=== PATIENT | male | born 1955 | race Caucasian/White ===

== ENCOUNTER → 2020-02-21 | Outpatient (CLI) | payer OTHER ==
[~2020-02-21] MED LIST: AMIO200T42 PO; AMLO2.5T5 PO; ASPI-496 PO; ATOR20TA37 PO; CYAN1TAB29 PO; GABA300C PO; HYDR-3237 PO; HYDR25TA6 PO; MELO7.5T31 PO; METO50TA82 PO; OMEG1CAP23 PO; OMEP40CA42 PO; POTA20TA89 PO
[2020-02-21 16:04] LABS: MICROSCOPIC NOT IND
[2020-02-21 16:06] LABS: BASOPHILS # (AUTO) 0.03 x10^3/uL (0-0.1); BASOPHILS % (AUTO) 0 % (0-1); EOSINOPHILS # (AUTO) 0.04 x10^3/uL (0-0.4); EOSINOPHILS % (AUTO) 1 % (1-7); LYMPHOCYTES # (AUTO) 1.59 x10^3/uL (1-3.4); LYMPHOCYTES % (AUTO) 22 % (22-44); MD NO; MEAN CORPUSCULAR HEMOGLOBIN 35.1 pg (27.5-34.5); MEAN CORPUSCULAR HGB CONC 33.9 g/dL (33.2-36.2); MEAN CORPUSCULAR VOLUME 103.6 fL (81-97); MEAN PLATELET VOLUME 7.9 fL (7.4-10.4); MONOCYTES # (AUTO) 0.56 x10^3/uL (0.2-0.8); MONOCYTES % (AUTO) 8 % (2-9); NEUTROPHILS # (AUTO) 4.98 x10^3/uL (1.8-6.8); NEUTROPHILS % (AUTO) 69 % (42-75); PLATELET COUNT 178 x10^3/uL (130-400); RED BLOOD COUNT 4.42 x10^6/uL (4.38-5.82); RED CELL DISTRIBUTION WIDTH 13.4 % (9.4-14.8)
[2020-02-21 16:14] LABS: ALBUMIN 3.7 g/dL (3.4-5.0); ANION GAP 9 mmol/L (5-15); CHLORIDE 110 mmol/L (98-107)
[2020-02-21 16:17] LABS: ALANINE AMINOTRANSFERASE 52 U/L (12-78); ALKALINE PHOSPHATASE 61 U/L (45-117); BILIRUBIN,TOTAL 0.8 mg/dL (0.2-1.0); CREATININE 0.88 mg/dL (0.7-1.3)
[2020-02-21 16:21] LABS: INTERNATIONAL NORMALIZED RATIO 1.03 (0.93-1.1); PROTHROMBIN TIME 10.9 Seconds (9.6-11.5)
== END | disposition home or self-care (01) ==
LOC: STAR 14:51
PROVIDERS: ATTEND Neurological Surgery
DX: Z01.811 Encounter for preprocedural respiratory examination (principal); Z01.810 Encounter for preprocedural cardiovascular examination; Z01.812 Encounter for preprocedural laboratory examination; M48.061 Spinal stenosis, lumbar region without neurogenic claudication; M51.37 Other intervertebral disc degeneration, lumbosacral region; M54.16 Radiculopathy, lumbar region; R79.1 Abnormal coagulation profile; R82.90 Unspecified abnormal findings in urine; R94.31 Abnormal electrocardiogram [ECG] [EKG]
CPT/HCPCS: 36415; 71046; 72110; 80053; 81003; 85025; 85610; 85730; 93005

== ENCOUNTER 2020-02-28 09:28 | Inpatient (IN) | payer OTHER ==
[2020-02-21 15:48] VITALS: BP 152/94
[~2020-02-28] VITALS: Ht 172.7 cm; Wt 94.0 kg
[~2020-02-28 09:28] MED LIST changes: +BACITRACIN 50,000 UNIT ONE
[2020-02-28] MEDS ORDERED: LACTATED RINGERS 1,000 ML IV SCH (10:15)
[2020-02-28] MEDS ORDERED: ACETAMINOPHEN 500 MG TABLET PO ONE (10:30)
[2020-02-28] MEDS ORDERED: CHLORHEXIDINE 15 ML UDC MM ONE (10:30)
[2020-02-28] MEDS ORDERED: GABAPENTIN 300 MG CAPSULE PO ONE (10:30)
[2020-02-28] MEDS ORDERED: MIDAZOLAM 1 MG/ML, 2ML ONE (13:09)
[2020-02-28] MEDS ORDERED: FENTANYL PF 250 MCG/5ML ONE (13:10)
[2020-02-28] MEDS ORDERED: LIDOCAINE 4%, 4 ML SYR/CANN TP ONE (13:12)
[2020-02-28] MEDS ORDERED: HEPARIN 1,000 UNITS/ML, 30ML ONE (13:21)
[2020-02-28] MEDS ORDERED: hydrALAzine 20 MG/ML, 1ML IV PRN (13:30)
[2020-02-28] MEDS ORDERED: OXYcodone 5 MG/5 ML ORAL.SOL UDC PO PRN (13:30)
[2020-02-28] MEDS ORDERED: MEPERIDINE/PF 25MG/0.5ML IVPush PRN (13:30)
[2020-02-28] MEDS ORDERED: PROMETHAZINE 25 MG/ML, 1ML IVPush PRN (13:30)
[2020-02-28] MEDS ORDERED: LABETALOL 5MG/ML, 20ML IV PRN ×2 (13:30→18:30)
[2020-02-28] MEDS ORDERED: DIPHENHYDRAMINE 50 MG/ML, 1ML IVPush PRN (13:30)
[2020-02-28] MEDS ORDERED: HEPARIN 1,000 UNITS/ML, 30ML IVPB ONE (14:39)
[2020-02-28] MEDS ORDERED: SUGAMMADEX 200 MG/2 ML IVPush ONE (15:08)
[2020-02-28] MEDS ORDERED: CEFAZOLIN 1,000 MG ONE (15:09)
[2020-02-28] MEDS ORDERED: ONDANSETRON 2MG/ML, 2ML ONE (15:09)
[2020-02-28] MEDS ORDERED: DEXAMETHASONE 4 MG/ML, 1ML ONE (15:09)
[2020-02-28] MEDS ORDERED: GLYCOPYRROLATE 0.2MG/1ML, 5ML ONE (15:09)
[2020-02-28] MEDS ORDERED: PROPOFOL 10 MG/ML, 20ML ONE (15:09)
[2020-02-28] MEDS ORDERED: NEOSTIGMINE 1 MG/ML, 10ML ONE (15:09)
[2020-02-28] MEDS ORDERED: SUCCINYLCHOLINE 20 MG/ML, 10ML ONE (15:09)
[2020-02-28] MEDS ORDERED: ROCURONIUM 10MG/ML,5ML ONE (15:09)
[2020-02-28] MEDS ORDERED: FENTANYL PF 100 MCG/2ML ONE (15:32)
[2020-02-28] MEDS ORDERED: HYDROmorphone 1 MG/ML, 1ML INJ ONE ×3 (15:33→18:13)
[2020-02-28] MEDS ORDERED: OXYcodone 5 MG/5 ML ORAL.SOL UDC ONE (15:33)
[2020-02-28] MEDS: FENTANYL PF 100 MCG/2ML IV PRN ×2 (15:35→15:40)
[2020-02-28] MEDS: HYDROmorphone 1 MG/ML, 1ML INJ IVPush PRN ×4 (15:50→16:25)
[2020-02-28 17:15] VITALS: BP 143/85
[2020-02-28] MEDS: HYDROmorphone 2 MG/ML, 1ML IVPush PRN (18:15)
[2020-02-28] MEDS ORDERED: PROMETHAZINE 25 MG/ML, 1ML IM PRN (18:30)
[2020-02-28] MEDS ORDERED: ONDANSETRON 2MG/ML, 2ML IV PRN (18:30)
[2020-02-28] MEDS ORDERED: DIPHENHYDRAMINE 25 MG CAPSULE PO PRN (18:30)
[2020-02-28] MEDS ORDERED: MAGNESIUM HYDROXIDE 8%, 30ML UDC PO PRN (18:30)
[2020-02-28] MEDS ORDERED: BISACODYL 10 MG SUPP PR PRN (18:30)
[2020-02-28] MEDS ORDERED: POTASSIUM CHLORIDE 20 MEQ TAB.ER.PRT PO PRN (19:00)
[2020-02-28] MEDS: D5%-0.9% NACL+KCL 20MEQ 1,000 ML IV SCH (20:03)
[2020-02-28] MEDS: ATORVASTATIN 20 MG TABLET PO SCH (20:32)
[2020-02-28] MEDS: HYDROcodone/APAP 10/325 MG TABLET PO PRN ×2 (20:32→22:20)
[2020-02-28] MEDS ORDERED: ZOLPIDEM 5MG TABLET PO PRN (21:00)
[2020-02-28] MEDS: CEFAZOLIN PMX 1GM/50ML 50 ML IVPB SCH (22:22)
[2020-02-29 00:28] VITALS: BP 134/85
[2020-02-29] MEDS: HYDROmorphone 2 MG/ML, 1ML IVPush PRN (00:38)
[2020-02-29] MEDS: HYDROcodone/APAP 10/325 MG TABLET PO PRN (02:18)
[2020-02-29 04:23] VITALS: BP 115/68
[2020-02-29] MEDS ORDERED: METOPROLOL TARTRATE 50 MG TAB ONE (05:48)
[2020-02-29] MEDS: METOPROLOL TARTRATE 50 MG TAB PO SCH (05:50)
[2020-02-29] MEDS: CEFAZOLIN PMX 1GM/50ML 50 ML IVPB SCH ×2 (05:50→16:02)
[2020-02-29] MEDS: OMEPRAZOLE 20 MG CAPSULE.DR PO SCH (05:50)
[2020-02-29] MEDS ORDERED: BUPIVACAINE/EPI 0.5% 1:200K ONE (06:20)
[2020-02-29] MEDS ORDERED: BACITRACIN 50,000 UNIT ONE (06:20)
[2020-02-29 06:37] LABS: BASOPHILS # (AUTO) 0.04 x10^3/uL (0-0.1); BASOPHILS % (AUTO) 0 % (0-1); EOSINOPHILS # (AUTO) 0.01 x10^3/uL (0-0.4); EOSINOPHILS % (AUTO) 0 % (1-7); LYMPHOCYTES # (AUTO) 0.79 x10^3/uL (1-3.4); LYMPHOCYTES % (AUTO) 8 % (22-44); MD NO; MEAN CORPUSCULAR HEMOGLOBIN 34.4 pg (27.5-34.5); MEAN PLATELET VOLUME 8.1 fL (7.4-10.4); MONOCYTES # (AUTO) 0.61 x10^3/uL (0.2-0.8); MONOCYTES % (AUTO) 6 % (2-9); NEUTROPHILS # (AUTO) 8.64 x10^3/uL (1.8-6.8); NEUTROPHILS % (AUTO) 86 % (42-75); PLATELET COUNT 184 x10^3/uL (130-400); RED BLOOD COUNT 4.22 x10^6/uL (4.38-5.82); RED CELL DISTRIBUTION WIDTH 12.6 % (9.4-14.8)
[2020-02-29] MEDS ORDERED: FENTANYL PF 100 MCG/2ML ONE ×3 (06:38→11:09)
[2020-02-29] MEDS ORDERED: DEXAMETHASONE 4 MG/ML, 1ML ONE (06:38)
[2020-02-29] MEDS ORDERED: PROPOFOL 10 MG/ML, 20ML ONE (06:38)
[2020-02-29] MEDS ORDERED: MIDAZOLAM 1 MG/ML, 2ML ONE (06:38)
[2020-02-29] MEDS ORDERED: ONDANSETRON 2MG/ML, 2ML ONE (06:38)
[2020-02-29] MEDS ORDERED: CEFAZOLIN 1,000 MG ONE (06:38)
[2020-02-29 06:44] LABS: ANION GAP 7 mmol/L (5-15); CALCIUM 8.8 mg/dL (8.5-10.1); CHLORIDE 107 mmol/L (98-107); CREATININE 0.72 mg/dL (0.7-1.3)
[2020-02-29] MEDS: D5%-0.9% NACL+KCL 20MEQ 1,000 ML IV SCH ×3 (06:44→19:56)
[2020-02-29] MEDS ORDERED: SUCCINYLCHOLINE 20 MG/ML, 10ML ONE (07:18)
[2020-02-29] MEDS ORDERED: HYDROcodone/APAP 7.5-325MG/15ML UDC PO PRN (07:30)
[2020-02-29] MEDS ORDERED: OXYcodone 5 MG/5 ML ORAL.SOL UDC PO PRN (07:30)
[2020-02-29] MEDS ORDERED: MEPERIDINE/PF 25MG/0.5ML IVPush PRN (07:30)
[2020-02-29] MEDS ORDERED: PROMETHAZINE 25 MG/ML, 1ML IVPush PRN (07:30)
[2020-02-29] MEDS ORDERED: LORazepam 2 MG/ML, 1ML IVPush PRN (07:30)
[2020-02-29] MEDS ORDERED: HYDROmorphone 1 MG/ML, 1ML INJ IVPush PRN (07:30)
[2020-02-29] MEDS ORDERED: PROPOFOL 50 ML ONE (08:28)
[2020-02-29] MEDS ORDERED: SENNA/DOCUSATE TABLET PO SCH (09:00)
[2020-02-29] MEDS ORDERED: BISACODYL 10 MG SUPP PR PRN (10:30)
[2020-02-29] MEDS ORDERED: PHARMACY MAY ADJ FOR RENAL FX MC PRN (10:30)
[2020-02-29] MEDS ORDERED: MAGNESIUM HYDROXIDE 8%, 30ML UDC PO PRN (10:30)
[2020-02-29] MEDS ORDERED: ONDANSETRON 2MG/ML, 2ML IVPush PRN (10:30)
[2020-02-29] MEDS ORDERED: HYDROCHLOROTHIAZIDE 25 MG TABLET PO SCH (10:30)
[2020-02-29] MEDS ORDERED: DIPHENHYDRAMINE 50 MG/ML, 1ML IVPush PRN (10:30)
[2020-02-29] MEDS ORDERED: SENNA/DOCUSATE TABLET PO PRN (10:30)
[2020-02-29] MEDS ORDERED: POTASSIUM CHLORIDE 20 MEQ TAB.ER.PRT PO PRN (10:30)
[2020-02-29] MEDS ORDERED: PROMETHAZINE 25 MG/ML, 1ML IM PRN (10:30)
[2020-02-29] MEDS: LABETALOL 5MG/ML 40ML VIAL IVPush SCH ×2 (10:30→18:30)
[2020-02-29] MEDS ORDERED: METHOCARBAMOL 1,000 MG in DEXTROSE 5% 100 ML IV ONE (10:30)
[2020-02-29] MEDS ORDERED: GLYCOPYRROLATE 0.4 MG/2 ML, 2ML ONE (11:02)
[2020-02-29] MEDS ORDERED: OXYcodone 5 MG/5 ML ORAL.SOL UDC ONE (11:09)
[2020-02-29] MEDS: FENTANYL PF 100 MCG/2ML IV PRN ×4 (11:10→11:25)
[2020-02-29 12:01] VITALS: BP 136/81
[2020-02-29] MEDS: CYCLOBENZAPRINE 10 MG TABLET PO PRN ×2 (12:38→20:22)
[2020-02-29] MEDS: AMLODIPINE 2.5 MG TABLET PO SCH (12:39)
[2020-02-29] MEDS: AMIODARONE 200 MG TABLET PO SCH (12:39)
[2020-02-29] MEDS: GABAPENTIN 300 MG CAPSULE PO SCH (12:39)
[2020-02-29] MEDS: HYDROmorphone 1 MG/ML, 1ML INJ IVPush PRN (12:49)
[2020-02-29 13:28] VITALS: BP 109/64
[2020-02-29] MEDS: DEXAMETHASONE 4 MG/ML, 1ML IVPush SCH ×2 (14:47→19:57)
[2020-02-29] MEDS: OXYcodone/APAP 5/325MG TABLET PO PRN (16:16)
[2020-02-29] MEDS: SODIUM CHLORIDE FLUSH 10ML SYR IVF SCH (19:57)
[2020-02-29] MEDS: ATORVASTATIN 20 MG TABLET PO SCH (19:57)
[2020-02-29] MEDS: HYDROcodone/APAP 5/325 TABLET PO PRN (20:22)
[2020-02-29 20:36] VITALS: BP 124/79
[2020-02-29] MEDS ORDERED: ATORVASTATIN 20 MG TABLET PO SCH (21:00)
[2020-03-01] MEDS: CEFAZOLIN PMX 1GM/50ML 50 ML IVPB SCH ×2 (00:12→18:27)
[2020-03-01] MEDS: HYDROcodone/APAP 5/325 TABLET PO PRN ×2 (00:12→04:10)
[2020-03-01 00:43] VITALS: BP 106/64
[2020-03-01] MEDS: LABETALOL 5MG/ML 40ML VIAL IVPush SCH (02:30)
[2020-03-01] MEDS: DEXAMETHASONE 4 MG/ML, 1ML IVPush SCH (04:10)
[2020-03-01] MEDS: HYDROmorphone 1 MG/ML, 1ML INJ IVPush PRN ×2 (04:15→18:27)
[2020-03-01 04:49] VITALS: BP 113/67
[2020-03-01] MEDS: OMEPRAZOLE 20 MG CAPSULE.DR PO SCH (05:10)
[2020-03-01] MEDS: D5%-0.9% NACL+KCL 20MEQ 1,000 ML IV SCH ×2 (05:10→18:27)
[2020-03-01 05:43] LABS: ANION GAP 4 mmol/L (5-15); CALCIUM 8.5 mg/dL (8.5-10.1); CHLORIDE 108 mmol/L (98-107); CREATININE 1.03 mg/dL (0.7-1.3)
[2020-03-01 05:44] LABS: MEAN CORPUSCULAR HEMOGLOBIN 34.5 pg (27.5-34.5); MEAN CORPUSCULAR HGB CONC 33.2 g/dL (33.2-36.2); MEAN PLATELET VOLUME 8.7 fL (7.4-10.4); PLATELET COUNT 208 x10^3/uL (130-400); RED BLOOD COUNT 3.91 x10^6/uL (4.38-5.82); RED CELL DISTRIBUTION WIDTH 13.2 % (9.4-14.8)
[2020-03-01] MEDS ORDERED: BACITRACIN 50,000 UNIT ONE (06:01)
[2020-03-01] MEDS ORDERED: BUPIVACAINE/EPI 0.5% 1:200K ONE (06:01)
[2020-03-01] MEDS ORDERED: VANCOMYCIN 1,000 MG ONE (06:01)
[2020-03-01 06:40] LABS: BASOPHILS # (AUTO) 0.07 x10^3/uL (0-0.1); BASOPHILS % (AUTO) 1 % (0-1); EOSINOPHILS # (AUTO) 0.01 x10^3/uL (0-0.4); EOSINOPHILS % (AUTO) 0 % (1-7); LYMPHOCYTES # (AUTO) 0.73 x10^3/uL (1-3.4); LYMPHOCYTES % (AUTO) 6 % (22-44); MD SCAN; MONOCYTES # (AUTO) 0.35 x10^3/uL (0.2-0.8); MONOCYTES % (AUTO) 3 % (2-9); NEUTROPHILS % (AUTO) 91 % (42-75)
[2020-03-01 07:14] VITALS: BP 123/71
[2020-03-01] MEDS ORDERED: MIDAZOLAM 1 MG/ML, 2ML ONE (08:26)
[2020-03-01] MEDS ORDERED: PROPOFOL 100 ML ONE (08:26)
[2020-03-01] MEDS ORDERED: FENTANYL PF 250 MCG/5ML ONE (08:27)
[2020-03-01] MEDS: SODIUM CHLORIDE FLUSH 10ML SYR IVF SCH ×2 (09:00→21:00)
[2020-03-01] MEDS ORDERED: OMEPRAZOLE 20 MG CAPSULE.DR PO SCH (09:00)
[2020-03-01] MEDS ORDERED: AMLODIPINE 2.5 MG TABLET PO SCH (09:00)
[2020-03-01] MEDS ORDERED: GABAPENTIN 300 MG CAPSULE PO SCH (09:00)
[2020-03-01] MEDS ORDERED: AMIODARONE 200 MG TABLET PO SCH (09:00)
[2020-03-01] MEDS ORDERED: METOPROLOL TARTRATE 50 MG TAB PO SCH (09:00)
[2020-03-01] MEDS ORDERED: BUPIVACAINE LIPOSOME/PF 10ML INFIL ONE (10:00)
[2020-03-01] MEDS ORDERED: CEFAZOLIN 1,000 MG ONE ×2 (10:19→10:20)
[2020-03-01] MEDS ORDERED: ROCURONIUM 10MG/ML,5ML ONE (10:19)
[2020-03-01] MEDS ORDERED: DEXAMETHASONE 4 MG/ML, 1ML ONE ×2 (10:19)
[2020-03-01] MEDS ORDERED: PROPOFOL 10 MG/ML, 20ML ONE (11:52)
[2020-03-01] MEDS ORDERED: ONDANSETRON 2MG/ML, 2ML ONE (11:52)
[2020-03-01] MEDS ORDERED: SUCCINYLCHOLINE 20 MG/ML, 10ML ONE (11:52)
[2020-03-01] MEDS ORDERED: FENTANYL PF 100 MCG/2ML IV PRN (12:00)
[2020-03-01] MEDS ORDERED: OXYcodone 5 MG/5 ML ORAL.SOL UDC PO PRN (12:00)
[2020-03-01] MEDS ORDERED: LABETALOL 5MG/ML, 20ML IV PRN ×2 (12:00→15:30)
[2020-03-01] MEDS ORDERED: ONDANSETRON 2MG/ML, 2ML IVPush PRN (12:00)
[2020-03-01] MEDS ORDERED: PROMETHAZINE 25 MG/ML, 1ML IVPush PRN (12:00)
[2020-03-01] MEDS ORDERED: METHOCARBAMOL 1,000 MG in DEXTROSE 5% 100 ML IV PRN (12:00)
[2020-03-01] MEDS ORDERED: HYDROmorphone 1 MG/ML, 1ML INJ IVPush PRN (12:00)
[2020-03-01] MEDS ORDERED: DIAZEPAM 5 MG/ML, 2ML IVPush PRN (12:00)
[2020-03-01] MEDS ORDERED: MEPERIDINE/PF 25MG/0.5ML IVPush PRN (12:00)
[2020-03-01] MEDS ORDERED: hydrALAzine 20 MG/ML, 1ML IV PRN (12:00)
[2020-03-01] MEDS ORDERED: FENTANYL PF 100 MCG/2ML ONE ×2 (13:07→13:54)
[2020-03-01] MEDS: FENTANYL PF 100 MCG/2ML IV PRN ×4 (13:09→14:09)
[2020-03-01] MEDS ORDERED: MEPERIDINE/PF 25MG/ML,1ML ONE (13:16)
[2020-03-01] MEDS ORDERED: OXYcodone 5 MG/5 ML ORAL.SOL UDC ONE (13:54)
[2020-03-01] MEDS ORDERED: HYDROmorphone 1 MG/ML, 1ML INJ ONE (14:18)
[2020-03-01 15:04] VITALS: BP 157/80
[2020-03-01] MEDS: METOPROLOL TARTRATE 50 MG TAB PO SCH (15:30)
[2020-03-01] MEDS ORDERED: DIPHENHYDRAMINE 50 MG/ML, 1ML IM PRN (15:30)
[2020-03-01] MEDS ORDERED: MAGNESIUM HYDROXIDE 8%, 30ML UDC PO PRN (15:30)
[2020-03-01] MEDS: GABAPENTIN 300 MG CAPSULE PO SCH (15:30)
[2020-03-01] MEDS ORDERED: DIPHENHYDRAMINE 25 MG CAPSULE PO PRN (15:30)
[2020-03-01] MEDS ORDERED: PROMETHAZINE 25 MG/ML, 1ML IM PRN (15:30)
[2020-03-01] MEDS ORDERED: BISACODYL 10 MG SUPP PR PRN (15:30)
[2020-03-01] MEDS: AMIODARONE 200 MG TABLET PO SCH (15:31)
[2020-03-01] MEDS: AMLODIPINE 2.5 MG TABLET PO SCH (15:31)
[2020-03-01] MEDS: ATORVASTATIN 20 MG TABLET PO SCH (19:52)
[2020-03-01] MEDS: OXYcodone/APAP 5/325MG TABLET PO PRN (19:52)
[2020-03-01] MEDS: METHOCARBAMOL 750 MG TABLET PO PRN (19:53)
[2020-03-01 19:57] VITALS: BP 123/69
[2020-03-02 00:20] VITALS: BP 118/75
[2020-03-02] MEDS: OXYcodone/APAP 5/325MG TABLET PO PRN ×2 (00:22→16:51)
[2020-03-02] MEDS: CEFAZOLIN PMX 1GM/50ML 50 ML IVPB SCH (01:37)
[2020-03-02] MEDS: HYDROmorphone 1 MG/ML, 1ML INJ IVPush PRN ×4 (01:37→22:24)
[2020-03-02 03:38] VITALS: BP 124/69
[2020-03-02] MEDS: ONDANSETRON 2MG/ML, 2ML IV PRN ×3 (03:50→21:22)
[2020-03-02] MEDS: D5%-0.9% NACL+KCL 20MEQ 1,000 ML IV SCH ×2 (04:00→21:00)
[2020-03-02 04:57] LABS: MEAN CORPUSCULAR HEMOGLOBIN 34.5 pg (27.5-34.5); MEAN CORPUSCULAR HGB CONC 33.4 g/dL (33.2-36.2); MEAN PLATELET VOLUME 8.2 fL (7.4-10.4); PLATELET COUNT 175 x10^3/uL (130-400); RED BLOOD COUNT 3.24 x10^6/uL (4.38-5.82); RED CELL DISTRIBUTION WIDTH 13.2 % (9.4-14.8)
[2020-03-02 05:04] LABS: ANION GAP 4 mmol/L (5-15); CALCIUM 8.1 mg/dL (8.5-10.1); CHLORIDE 107 mmol/L (98-107); CREATININE 0.81 mg/dL (0.7-1.3)
[2020-03-02 06:05] LABS: BASOPHILS # (AUTO) 0.03 x10^3/uL (0-0.1); BASOPHILS % (AUTO) 0 % (0-1); EOSINOPHILS # (AUTO) 0.02 x10^3/uL (0-0.4); EOSINOPHILS % (AUTO) 0 % (1-7); LYMPHOCYTES # (AUTO) 0.91 x10^3/uL (1-3.4); LYMPHOCYTES % (AUTO) 9 % (22-44); MD SCAN; MONOCYTES # (AUTO) 0.96 x10^3/uL (0.2-0.8); MONOCYTES % (AUTO) 9 % (2-9); NEUTROPHILS # (AUTO) 8.49 x10^3/uL (1.8-6.8); NEUTROPHILS % (AUTO) 82 % (42-75)
[2020-03-02] MEDS: OMEPRAZOLE 20 MG CAPSULE.DR PO SCH (06:35)
[2020-03-02] MEDS: CEPHALEXIN 500 MG CAPSULE PO SCH ×4 (06:35→22:19)
[2020-03-02] MEDS: ENOXAPARIN 40 MG/0.4 ML SQ SCH (06:35)
[2020-03-02 06:40] VITALS: BP 146/83
[2020-03-02] MEDS ORDERED: PINK LADY ENEMA 490 ML BOTTLE PR PRN (08:00)
[2020-03-02] MEDS ORDERED: METOCLOPRAMIDE 5 MG/ML, 2ML IVPush SCH (09:00)
[2020-03-02] MEDS ORDERED: SENNA/DOCUSATE TABLET PO SCH (09:00)
[2020-03-02] MEDS: AMLODIPINE 2.5 MG TABLET PO SCH (09:32)
[2020-03-02] MEDS: GABAPENTIN 300 MG CAPSULE PO SCH (09:32)
[2020-03-02] MEDS: AMIODARONE 200 MG TABLET PO SCH (09:32)
[2020-03-02] MEDS: METOPROLOL TARTRATE 50 MG TAB PO SCH (09:32)
[2020-03-02] MEDS: SODIUM CHLORIDE FLUSH 10ML SYR IVF SCH ×2 (09:33→21:00)
[2020-03-02] MEDS: DIPHENHYDRAMINE 50 MG/ML, 1ML IVPush PRN (10:12)
[2020-03-02] MEDS ORDERED: MORPHINE SULFATE 4 MG/ML, 1ML IVPush PRN (11:00)
[2020-03-02] MEDS ORDERED: POTASSIUM PHOSPHATE 22 MEQ in SODIUM CHLORIDE 0.9% 500 ML IV ONE (13:00)
[2020-03-02 14:12] LABS: MICROSCOPIC AUTO
[2020-03-02 14:16] VITALS: BP 157/90
[2020-03-02 14:36] LABS: BASOPHILS # (AUTO) 0.03 x10^3/uL (0-0.1); BASOPHILS % (AUTO) 0 % (0-1); EOSINOPHILS # (AUTO) 0.01 x10^3/uL (0-0.4); EOSINOPHILS % (AUTO) 0 % (1-7); LYMPHOCYTES % (AUTO) 15 % (22-44); MD NO; MEAN CORPUSCULAR HEMOGLOBIN 34.7 pg (27.5-34.5); MEAN CORPUSCULAR HGB CONC 33.3 g/dL (33.2-36.2); MEAN PLATELET VOLUME 8.2 fL (7.4-10.4); MONOCYTES # (AUTO) 1.05 x10^3/uL (0.2-0.8); MONOCYTES % (AUTO) 11 % (2-9); NEUTROPHILS # (AUTO) 7.33 x10^3/uL (1.8-6.8); NEUTROPHILS % (AUTO) 74 % (42-75); PLATELET COUNT 181 x10^3/uL (130-400); RED BLOOD COUNT 3.45 x10^6/uL (4.38-5.82); RED CELL DISTRIBUTION WIDTH 12.9 % (9.4-14.8)
[2020-03-02] MEDS ORDERED: OMNIPAQUE 350 MG/ML, 100ML BOTTLE ONE (16:00)
[2020-03-02] MEDS: METHOCARBAMOL 750 MG TABLET PO PRN (16:51)
[2020-03-02] MEDS: MORPHINE SULFATE 4 MG/ML, 1ML IVPush PRN ×2 (18:26→21:22)
[2020-03-02 19:47] VITALS: BP 143/91
[2020-03-02] MEDS: ATORVASTATIN 20 MG TABLET PO SCH (22:19)
[2020-03-03] MEDS: DIPHENHYDRAMINE 50 MG/ML, 1ML IVPush PRN ×3 (00:58→22:49)
[2020-03-03] MEDS: MORPHINE SULFATE 4 MG/ML, 1ML IVPush PRN ×4 (00:58→15:38)
[2020-03-03 01:06] VITALS: BP 139/79
[2020-03-03] MEDS: ONDANSETRON 2MG/ML, 2ML IV PRN ×2 (03:17→20:38)
[2020-03-03] MEDS: HYDROmorphone 1 MG/ML, 1ML INJ IVPush PRN ×3 (03:17→18:11)
[2020-03-03] MEDS: METHOCARBAMOL 750 MG TABLET PO PRN (03:18)
[2020-03-03 05:02] LABS: BASOPHILS # (AUTO) 0.02 x10^3/uL (0-0.1); BASOPHILS % (AUTO) 0 % (0-1); EOSINOPHILS # (AUTO) 0.01 x10^3/uL (0-0.4); EOSINOPHILS % (AUTO) 0 % (1-7); LYMPHOCYTES # (AUTO) 1.09 x10^3/uL (1-3.4); LYMPHOCYTES % (AUTO) 16 % (22-44); MD NO; MEAN CORPUSCULAR HEMOGLOBIN 34.9 pg (27.5-34.5); MEAN CORPUSCULAR HGB CONC 33.8 g/dL (33.2-36.2); MONOCYTES # (AUTO) 0.78 x10^3/uL (0.2-0.8); MONOCYTES % (AUTO) 12 % (2-9); NEUTROPHILS % (AUTO) 72 % (42-75); PLATELET COUNT 156 x10^3/uL (130-400); RED BLOOD COUNT 3.18 x10^6/uL (4.38-5.82)
[2020-03-03] MEDS: OMEPRAZOLE 20 MG CAPSULE.DR PO SCH (05:02)
[2020-03-03] MEDS: ENOXAPARIN 40 MG/0.4 ML SQ SCH (05:02)
[2020-03-03] MEDS: CEPHALEXIN 500 MG CAPSULE PO SCH ×4 (05:02→20:38)
[2020-03-03 05:10] LABS: ANION GAP 5 mmol/L (5-15); CALCIUM 7.9 mg/dL (8.5-10.1); CHLORIDE 107 mmol/L (98-107); CREATININE 0.82 mg/dL (0.7-1.3)
[2020-03-03] MEDS ORDERED: PANTOPRAZOLE 40 MG IV IVPush ONE (07:00)
[2020-03-03 07:30] VITALS: BP 126/73
[2020-03-03] MEDS: METOPROLOL TARTRATE 50 MG TAB PO SCH (08:24)
[2020-03-03] MEDS: AMIODARONE 200 MG TABLET PO SCH (08:24)
[2020-03-03] MEDS: AMLODIPINE 2.5 MG TABLET PO SCH (08:24)
[2020-03-03] MEDS: SODIUM CHLORIDE FLUSH 10ML SYR IVF SCH ×2 (08:24→22:03)
[2020-03-03] MEDS: GABAPENTIN 300 MG CAPSULE PO SCH (08:24)
[2020-03-03] MEDS: D5%-0.9% NACL+KCL 20MEQ 1,000 ML IV SCH ×2 (08:25→22:03)
[2020-03-03 14:10] VITALS: BP 154/81
[2020-03-03] MEDS: PANTOPRAZOLE 40 MG IV IVPush SCH (15:22)
[2020-03-03 18:37] VITALS: BP 119/66
[2020-03-03] MEDS: ATORVASTATIN 20 MG TABLET PO SCH (20:38)
[2020-03-03] MEDS: METHOCARBAMOL 750 MG in DEXTROSE 5% 100 ML IV PRN (22:03)
[2020-03-04] MEDS: HYDROmorphone 1 MG/ML, 1ML INJ IVPush PRN ×3 (00:54→11:33)
[2020-03-04 00:56] VITALS: BP 125/78
[2020-03-04] MEDS: PANTOPRAZOLE 40 MG IV IVPush SCH ×2 (03:36→15:19)
[2020-03-04] MEDS: MORPHINE SULFATE 4 MG/ML, 1ML IVPush PRN ×5 (03:37→23:25)
[2020-03-04] MEDS: METHOCARBAMOL 750 MG in DEXTROSE 5% 100 ML IV PRN (04:00)
[2020-03-04 05:34] LABS: MEAN CORPUSCULAR HEMOGLOBIN 34.6 pg (27.5-34.5); MEAN CORPUSCULAR HGB CONC 33.4 g/dL (33.2-36.2); MEAN PLATELET VOLUME 7.9 fL (7.4-10.4); PLATELET COUNT 163 x10^3/uL (130-400); RED BLOOD COUNT 3.04 x10^6/uL (4.38-5.82); RED CELL DISTRIBUTION WIDTH 12.9 % (9.4-14.8)
[2020-03-04 05:45] LABS: ANION GAP 4 mmol/L (5-15); CALCIUM 7.9 mg/dL (8.5-10.1); CHLORIDE 104 mmol/L (98-107)
[2020-03-04 05:47] LABS: CREATININE 0.65 mg/dL (0.7-1.3)
[2020-03-04] MEDS: ENOXAPARIN 40 MG/0.4 ML SQ SCH (06:14)
[2020-03-04] MEDS: CEPHALEXIN 500 MG CAPSULE PO SCH ×4 (06:14→21:00)
[2020-03-04 06:32] LABS: BASOPHILS # (AUTO) 0.02 x10^3/uL (0-0.1); BASOPHILS % (AUTO) 0 % (0-1); EOSINOPHILS # (AUTO) 0.01 x10^3/uL (0-0.4); EOSINOPHILS % (AUTO) 0 % (1-7); LYMPHOCYTES # (AUTO) 0.92 x10^3/uL (1-3.4); LYMPHOCYTES % (AUTO) 13 % (22-44); MD SCAN; MONOCYTES # (AUTO) 0.85 x10^3/uL (0.2-0.8); MONOCYTES % (AUTO) 12 % (2-9); NEUTROPHILS # (AUTO) 5.21 x10^3/uL (1.8-6.8); NEUTROPHILS % (AUTO) 74 % (42-75)
[2020-03-04 07:18] VITALS: BP 132/74
[2020-03-04] MEDS: METHYLNALTREXONE 12 MG/0.6 ML SYR SQ SCH (08:40)
[2020-03-04] MEDS: GABAPENTIN 300 MG CAPSULE PO SCH (08:40)
[2020-03-04] MEDS: METOPROLOL TARTRATE 50 MG TAB PO SCH (08:41)
[2020-03-04] MEDS: AMLODIPINE 2.5 MG TABLET PO SCH (08:41)
[2020-03-04] MEDS: AMIODARONE 200 MG TABLET PO SCH (08:41)
[2020-03-04] MEDS: SODIUM CHLORIDE FLUSH 10ML SYR IVF SCH ×2 (08:49→21:00)
[2020-03-04] MEDS: D5%-0.9% NACL+KCL 20MEQ 1,000 ML IV SCH ×2 (09:11→22:02)
[2020-03-04 14:21] VITALS: BP 132/76
[2020-03-04 19:32] VITALS: BP 122/64
[2020-03-04] MEDS: ATORVASTATIN 20 MG TABLET PO SCH (21:00)
[2020-03-05 01:46] VITALS: BP 137/72
[2020-03-05] MEDS: MORPHINE SULFATE 4 MG/ML, 1ML IVPush PRN ×3 (02:22→09:39)
[2020-03-05] MEDS: HYDROmorphone 1 MG/ML, 1ML INJ IVPush PRN ×7 (03:57→21:32)
[2020-03-05] MEDS: ENOXAPARIN 40 MG/0.4 ML SQ SCH (05:35)
[2020-03-05 05:45] LABS: BASOPHILS # (AUTO) 0.01 x10^3/uL (0-0.1); BASOPHILS % (AUTO) 0 % (0-1); EOSINOPHILS # (AUTO) 0.02 x10^3/uL (0-0.4); EOSINOPHILS % (AUTO) 0 % (1-7); LYMPHOCYTES # (AUTO) 0.82 x10^3/uL (1-3.4); LYMPHOCYTES % (AUTO) 10 % (22-44); MD NO; MEAN CORPUSCULAR HEMOGLOBIN 34.9 pg (27.5-34.5); MONOCYTES # (AUTO) 0.83 x10^3/uL (0.2-0.8); MONOCYTES % (AUTO) 10 % (2-9); NEUTROPHILS # (AUTO) 6.43 x10^3/uL (1.8-6.8); NEUTROPHILS % (AUTO) 79 % (42-75); PLATELET COUNT 186 x10^3/uL (130-400); RED BLOOD COUNT 3.14 x10^6/uL (4.38-5.82); RED CELL DISTRIBUTION WIDTH 12.8 % (9.4-14.8)
[2020-03-05 05:58] LABS: ALANINE AMINOTRANSFERASE 21 U/L (12-78); ALBUMIN 2.2 g/dL (3.4-5.0); ANION GAP 7 mmol/L (5-15); CALCIUM 7.9 mg/dL (8.5-10.1); CHLORIDE 104 mmol/L (98-107); CREATININE 0.62 mg/dL (0.7-1.3)
[2020-03-05] MEDS: CEPHALEXIN 500 MG CAPSULE PO SCH ×4 (06:00→21:00)
[2020-03-05] MEDS ORDERED: PANTOPRAZOLE 40MG TABLET PO SCH (06:00)
[2020-03-05 06:01] LABS: ALKALINE PHOSPHATASE 81 U/L (45-117); BILIRUBIN,TOTAL 0.9 mg/dL (0.2-1.0); TOTAL PROTEIN 5.8 g/dL (6.4-8.2)
[2020-03-05 07:29] VITALS: BP 144/85
[2020-03-05] MEDS: SODIUM CHLORIDE FLUSH 10ML SYR IVF SCH ×2 (09:00→21:00)
[2020-03-05] MEDS ORDERED: PANTOPRAZOLE 40 MG IV IV SCH (09:00)
[2020-03-05] MEDS: METOPROLOL TARTRATE 50 MG TAB PO SCH (09:41)
[2020-03-05] MEDS: GABAPENTIN 300 MG CAPSULE PO SCH (09:41)
[2020-03-05] MEDS: AMIODARONE 200 MG TABLET PO SCH (09:41)
[2020-03-05] MEDS: AMLODIPINE 2.5 MG TABLET PO SCH (09:42)
[2020-03-05] MEDS: D5%-0.9% NACL+KCL 20MEQ 1,000 ML IV SCH (10:16)
[2020-03-05] MEDS: METOCLOPRAMIDE 5 MG/ML, 2ML IVPush SCH ×2 (10:19→16:45)
[2020-03-05] MEDS ORDERED: PINK LADY ENEMA 490 ML BOTTLE PR ONE (12:00)
[2020-03-05] MEDS ORDERED: POTASSIUM PHOSPHATE 22 MEQ in SODIUM CHLORIDE 0.9% 500 ML IV ONE (12:00)
[2020-03-05 12:31] VITALS: BP 145/85
[2020-03-05 19:47] VITALS: BP 159/73
[2020-03-05] MEDS: ATORVASTATIN 20 MG TABLET PO SCH (21:00)
[2020-03-05 23:45] VITALS: BP 144/78
[2020-03-06] MEDS ORDERED: ACETAMINOPHEN 650 MG SUPP ONE (00:13)
[2020-03-06] MEDS: HYDROmorphone 1 MG/ML, 1ML INJ IVPush PRN ×3 (00:20→05:15)
[2020-03-06] MEDS ORDERED: ACETAMINOPHEN 650 MG SUPP PR PRN (00:30)
[2020-03-06 03:07] VITALS: BP 124/69
[2020-03-06] MEDS: D5%-0.9% NACL+KCL 20MEQ 1,000 ML IV SCH ×2 (05:15→17:39)
[2020-03-06] MEDS: HEPARIN 5,000 UNITS/ML, 1ML SQ SCH ×3 (05:15→23:35)
[2020-03-06] MEDS: CEPHALEXIN 500 MG CAPSULE PO SCH ×4 (06:00→23:03)
[2020-03-06 07:01] LABS: ALANINE AMINOTRANSFERASE 20 U/L (12-78); ANION GAP 8 mmol/L (5-15); CALCIUM 7.8 mg/dL (8.5-10.1); CHLORIDE 105 mmol/L (98-107); CREATININE 0.66 mg/dL (0.7-1.3)
[2020-03-06 07:04] LABS: ALKALINE PHOSPHATASE 86 U/L (45-117); BILIRUBIN,TOTAL 1.1 mg/dL (0.2-1.0); TOTAL PROTEIN 5.8 g/dL (6.4-8.2)
[2020-03-06 07:44] LABS: MD YES; MEAN CORPUSCULAR HEMOGLOBIN 34.6 pg (27.5-34.5); MEAN CORPUSCULAR HGB CONC 33.4 g/dL (33.2-36.2); MEAN PLATELET VOLUME 8.7 fL (7.4-10.4); PLATELET COUNT 187 x10^3/uL (130-400); RED CELL DISTRIBUTION WIDTH 12.4 % (9.4-14.8)
[2020-03-06 07:53] VITALS: BP 113/66
[2020-03-06 07:53] LABS: BAND#(MANUAL) 2.83 x10^3/uL; BANDS%(MANUAL) 26 % (0-7); SEG#(MANUAL) 6.32 x10^3/uL (1.8-6.8); SEGS% (MANUAL) 58 % (42-75)
[2020-03-06 07:54] LABS: LYMPH#(MANUAL) 0.65 x10^3/uL (1-3.4); LYMPHS% (MANUAL) 6 % (22-44); MONOS#(MANUAL) 1.09 x10^3/uL (0.3-2.7); MONOS% (MANUAL) 10 % (2-9)
[2020-03-06 07:55] LABS: <PLATELET ESTIMATE> ADEQUATE; <PLT MORPHOLOGY> NORMAL PLT MORPH
[2020-03-06 07:56] LABS: ANISOCYTOSIS 1+; POLYCHROMASIA 1+
[2020-03-06] MEDS ORDERED: BISACODYL 10 MG SUPP PR PRN (08:00)
[2020-03-06] MEDS: AMLODIPINE 2.5 MG TABLET PO SCH (08:06)
[2020-03-06] MEDS: HYDROmorphone 1 MG/ML, 1ML INJ IV PRN (08:06)
[2020-03-06] MEDS: AMIODARONE 200 MG TABLET PO SCH (08:07)
[2020-03-06 08:09] LABS: PMNS WITH VACUOLES 1+
[2020-03-06] MEDS: METHYLNALTREXONE 12 MG/0.6 ML SYR SQ SCH (08:10)
[2020-03-06] MEDS: METOPROLOL TARTRATE 50 MG TAB PO SCH (08:15)
[2020-03-06] MEDS: METOCLOPRAMIDE 5 MG/ML, 2ML IVPush SCH ×4 (08:15→23:02)
[2020-03-06 12:10] VITALS: BP 136/75
[2020-03-06] MEDS: OXYcodone/APAP 5/325MG TABLET PO PRN ×3 (12:22→23:36)
[2020-03-06] MEDS: GABAPENTIN 300 MG CAPSULE PO SCH (12:23)
[2020-03-06] MEDS: SODIUM CHLORIDE FLUSH 10ML SYR IVF SCH ×2 (12:24→21:00)
[2020-03-06 18:56] VITALS: BP 107/57
[2020-03-06 19:58] VITALS: BP 116/75
[2020-03-06 20:15] VITALS: BP 105/64
[2020-03-06] MEDS: ATORVASTATIN 20 MG TABLET PO SCH (23:03)
[2020-03-07 00:45] VITALS: BP 101/61
[2020-03-07] MEDS: D5%-0.9% NACL+KCL 20MEQ 1,000 ML IV SCH ×3 (02:54→23:27)
[2020-03-07] MEDS: HYDROmorphone 1 MG/ML, 1ML INJ IV PRN ×2 (04:31→16:08)
[2020-03-07] MEDS: METHOCARBAMOL 750 MG in DEXTROSE 5% 100 ML IV PRN (05:59)
[2020-03-07] MEDS: OXYcodone/APAP 5/325MG TABLET PO PRN ×3 (06:00→21:56)
[2020-03-07] MEDS: METOCLOPRAMIDE 5 MG/ML, 2ML IVPush SCH ×4 (06:00→21:57)
[2020-03-07 07:11] VITALS: BP 102/61
[2020-03-07] MEDS: AMIODARONE 200 MG TABLET PO SCH (07:36)
[2020-03-07] MEDS: GABAPENTIN 300 MG CAPSULE PO SCH (07:36)
[2020-03-07] MEDS: HEPARIN 5,000 UNITS/ML, 1ML SQ SCH ×3 (07:36→23:27)
[2020-03-07] MEDS: METOPROLOL TARTRATE 50 MG TAB PO SCH (07:36)
[2020-03-07] MEDS: AMLODIPINE 2.5 MG TABLET PO SCH (07:36)
[2020-03-07] MEDS ORDERED: TAMSULOSIN 0.4 MG CAP.ER.24H PO SCH (09:00)
[2020-03-07] MEDS: SODIUM CHLORIDE FLUSH 10ML SYR IVF SCH ×2 (11:41→21:00)
[2020-03-07 14:59] VITALS: BP 125/74
[2020-03-07 20:14] VITALS: BP 137/76
[2020-03-07] MEDS: DOXYCYCLINE 100MG CAP PO SCH (21:55)
[2020-03-07] MEDS: ATORVASTATIN 20 MG TABLET PO SCH (21:57)
[2020-03-08] MEDS: METHOCARBAMOL 750 MG in DEXTROSE 5% 100 ML IV PRN (00:38)
[2020-03-08 00:53] VITALS: BP 122/65
[2020-03-08] MEDS: HYDROmorphone 1 MG/ML, 1ML INJ IV PRN ×2 (02:40→21:54)
[2020-03-08] MEDS: OXYcodone/APAP 5/325MG TABLET PO PRN ×5 (05:25→23:59)
[2020-03-08] MEDS: METOCLOPRAMIDE 5 MG/ML, 2ML IVPush SCH (05:26)
[2020-03-08] MEDS: D5%-0.9% NACL+KCL 20MEQ 1,000 ML IV SCH (05:27)
[2020-03-08 06:42] VITALS: BP 117/69
[2020-03-08] MEDS: DOXYCYCLINE 100MG CAP PO SCH ×2 (08:09→21:47)
[2020-03-08] MEDS: AMIODARONE 200 MG TABLET PO SCH (08:09)
[2020-03-08] MEDS: GABAPENTIN 300 MG CAPSULE PO SCH (08:09)
[2020-03-08] MEDS: AMLODIPINE 2.5 MG TABLET PO SCH (08:09)
[2020-03-08] MEDS: METHYLNALTREXONE 12 MG/0.6 ML SYR SQ SCH (08:10)
[2020-03-08] MEDS: METOPROLOL TARTRATE 50 MG TAB PO SCH (08:10)
[2020-03-08] MEDS: HEPARIN 5,000 UNITS/ML, 1ML SQ SCH ×3 (08:10→23:55)
[2020-03-08] MEDS: SODIUM CHLORIDE FLUSH 10ML SYR IVF SCH ×2 (08:10→21:47)
[2020-03-08 13:37] VITALS: BP 105/64
[2020-03-08 19:18] VITALS: BP 114/64
[2020-03-08] MEDS: ATORVASTATIN 20 MG TABLET PO SCH (21:47)
[2020-03-08] MEDS: METHOCARBAMOL 750 MG TABLET PO PRN (21:55)
[2020-03-09 00:37] VITALS: BP 121/68
[2020-03-09] MEDS: METHOCARBAMOL 750 MG TABLET PO PRN ×2 (06:08→20:53)
[2020-03-09] MEDS: OXYcodone/APAP 5/325MG TABLET PO PRN ×4 (06:09→22:26)
[2020-03-09 07:40] VITALS: BP 138/71
[2020-03-09] MEDS: FUROSEMIDE 10 MG/ML ORAL SOL PO SCH ×2 (09:01→18:16)
[2020-03-09] MEDS: HEPARIN 5,000 UNITS/ML, 1ML SQ SCH ×2 (09:01→16:30)
[2020-03-09] MEDS: GABAPENTIN 300 MG CAPSULE PO SCH (09:01)
[2020-03-09] MEDS: POTASSIUM CHLORIDE 10 MEQ TABLET.ER PO SCH ×2 (09:02→16:29)
[2020-03-09] MEDS: SODIUM CHLORIDE FLUSH 10ML SYR IVF SCH ×2 (09:02→20:54)
[2020-03-09] MEDS: DOXYCYCLINE 100MG CAP PO SCH ×2 (09:02→20:53)
[2020-03-09] MEDS: AMLODIPINE 2.5 MG TABLET PO SCH (09:02)
[2020-03-09] MEDS: AMIODARONE 200 MG TABLET PO SCH (09:02)
[2020-03-09] MEDS: METOPROLOL TARTRATE 50 MG TAB PO SCH (09:02)
[2020-03-09 10:31] LABS: ALBUMIN 1.9 g/dL (3.4-5.0); ANION GAP 5 mmol/L (5-15); CHLORIDE 107 mmol/L (98-107); MEAN CORPUSCULAR HGB CONC 33.5 g/dL (33.2-36.2); MEAN PLATELET VOLUME 7.8 fL (7.4-10.4); PLATELET COUNT 221 x10^3/uL (130-400); RED BLOOD COUNT 2.93 x10^6/uL (4.38-5.82); RED CELL DISTRIBUTION WIDTH 12.9 % (9.4-14.8)
[2020-03-09 10:35] LABS: ALANINE AMINOTRANSFERASE 26 U/L (12-78); ALKALINE PHOSPHATASE 144 U/L (45-117); BILIRUBIN,TOTAL 0.8 mg/dL (0.2-1.0); TOTAL PROTEIN 5.4 g/dL (6.4-8.2)
[2020-03-09 10:48] LABS: BASOPHILS % (AUTO) 0 % (0-1); EOSINOPHILS # (AUTO) 0.05 x10^3/uL (0-0.4); EOSINOPHILS % (AUTO) 1 % (1-7); LYMPHOCYTES # (AUTO) 1.22 x10^3/uL (1-3.4); LYMPHOCYTES % (AUTO) 13 % (22-44); MD SCAN; MONOCYTES # (AUTO) 0.11 x10^3/uL (0.2-0.8); MONOCYTES % (AUTO) 1 % (2-9); NEUTROPHILS % (AUTO) 86 % (42-75)
[2020-03-09 13:50] VITALS: BP 125/77
[2020-03-09 18:46] VITALS: BP 111/64
[2020-03-09] MEDS: HYDROmorphone 1 MG/ML, 1ML INJ IV PRN (20:53)
[2020-03-09] MEDS: ATORVASTATIN 20 MG TABLET PO SCH (20:53)
[2020-03-10] MEDS: HEPARIN 5,000 UNITS/ML, 1ML SQ SCH ×2 (00:49→09:08)
[2020-03-10 01:00] VITALS: BP 116/73
[2020-03-10] MEDS: HYDROmorphone 1 MG/ML, 1ML INJ IV PRN ×3 (03:31→17:02)
[2020-03-10 05:55] LABS: ANION GAP 6 mmol/L (5-15); CALCIUM 8.2 mg/dL (8.5-10.1); CHLORIDE 105 mmol/L (98-107)
[2020-03-10 05:57] LABS: CREATININE 0.55 mg/dL (0.7-1.3)
[2020-03-10 07:25] VITALS: BP 118/65
[2020-03-10] MEDS ORDERED: POTASSIUM CHLORIDE 20 MEQ TAB.ER.PRT PO SCH (08:00)
[2020-03-10] MEDS: HYDROcodone/APAP 10/325 MG TABLET PO PRN ×2 (09:03→13:31)
[2020-03-10] MEDS: GABAPENTIN 300 MG CAPSULE PO SCH (09:04)
[2020-03-10] MEDS: AMLODIPINE 2.5 MG TABLET PO SCH (09:04)
[2020-03-10] MEDS: METOPROLOL TARTRATE 50 MG TAB PO SCH (09:04)
[2020-03-10] MEDS: METHYLNALTREXONE 12 MG/0.6 ML SYR SQ SCH (09:04)
[2020-03-10] MEDS: DOXYCYCLINE 100MG CAP PO SCH (09:04)
[2020-03-10] MEDS: AMIODARONE 200 MG TABLET PO SCH (09:04)
[2020-03-10] MEDS: FUROSEMIDE 10 MG/ML ORAL SOL PO SCH (09:05)
[2020-03-10] MEDS: SODIUM CHLORIDE FLUSH 10ML SYR IVF SCH (09:05)
[2020-03-10 13:15] VITALS: BP 115/69
[2020-03-10] MEDS ORDERED: POTA20TA6 PO (13:37)
[2020-03-10] MEDS ORDERED: FURO10SO PO (13:37)
== END 2020-03-10 17:10 | DRG 454 ==
LOC: ORIP 09:28 → 4NE 17:20
PROVIDERS: ADMIT Neurological Surgery; ATTEND Neurological Surgery
PROC: 0SG30A0 Fusion of Lumbosacral Joint with Interbody Fusion Device, Anterior Approach, Anterior Column, Open Approach (ICD-10-PCS; 2020-02-28)
PROC: 0SB40ZZ Excision of Lumbosacral Disc, Open Approach (ICD-10-PCS; 2020-02-28)
PROC: 4A11X4G Monitoring of Peripheral Nervous Electrical Activity, Intraoperative, External Approach (ICD-10-PCS; 2020-02-28)
PROC: 0SG10A0 Fusion of 2 or more Lumbar Vertebral Joints with Interbody Fusion Device, Anterior Approach, Anterior Column, Open Approach (ICD-10-PCS; 2020-02-29)
PROC: 0SG3071 Fusion of Lumbosacral Joint with Autologous Tissue Substitute, Posterior Approach, Posterior Column, Open Approach (ICD-10-PCS; 2020-03-01)
PROC: 8E0W0CZ Robotic Assisted Procedure of Trunk Region, Open Approach (ICD-10-PCS; 2020-03-01)
PROC: 0SG1071 Fusion of 2 or more Lumbar Vertebral Joints with Autologous Tissue Substitute, Posterior Approach, Posterior Column, Open Approach (ICD-10-PCS; principal; 2020-03-01 10:30)
DX: M48.062 Spinal stenosis, lumbar region with neurogenic claudication (principal); K56.7 Ileus, unspecified; E87.1 Hypo-osmolality and hyponatremia; M51.17 Intervertebral disc disorders with radiculopathy, lumbosacral region; M47.816 Spondylosis without myelopathy or radiculopathy, lumbar region; E66.9 Obesity, unspecified; E78.5 Hyperlipidemia, unspecified; E83.39 Other disorders of phosphorus metabolism; E87.6 Hypokalemia; G89.4 Chronic pain syndrome; I10 Essential (primary) hypertension; I25.10 Atherosclerotic heart disease of native coronary artery without angina pectoris; I73.9 Peripheral vascular disease, unspecified; J44.9 Chronic obstructive pulmonary disease, unspecified; K40.20 Bilateral inguinal hernia, without obstruction or gangrene, not specified as recurrent; M79.89 Other specified soft tissue disorders; K21.9 Gastro-esophageal reflux disease without esophagitis; M51.36 Other intervertebral disc degeneration, lumbar region; Z95.1 Presence of aortocoronary bypass graft; Z97.13 Presence of artificial right leg (complete) (partial); Z68.31 Body mass index [BMI] 31.0-31.9, adult; Z87.891 Personal history of nicotine dependence; Z89.611 Acquired absence of right leg above knee
CPT/HCPCS: 36415; 72100; 72131; 74018; 74176; 74177; 74270; 80048; 80053; 81001; 83735; 84100; 85025; 86850; 86900; 87040; 87635; 93005; 95938; 95941; C1713; C1729; C1776; G0378; J0690; J1100; J1170; J1644; J1650; J2175; J2250; J2405; J2550; J2704; J2710; J3010; J3370; Q9967; C1763; C1769; C1889; C9113; J0330; J1200; J2270; J2765; J2800; J3480; J7040; J7120